=== PATIENT | female | born 1935 | race Caucasian/White ===

== ENCOUNTER 2022-08-16 18:44 | Emergency (ER) | payer OTHER ==
[2022-08-16 19:35] VITALS: BMI 22.3
[2022-08-16 20:33] LABS: BASO % 0.8 % (0-2.0); EOS % 1.2 % (0-4.5); HEMATOCRIT 16.2 % (32.4-45.2); LYMPH % 13.8 % (8-40); MCH 18.2 pg (25.7-33.7); MCHC 29.9 g/dl (32.0-36.0); MEAN CELL VOLUME 60.9 fl (80-96); MEAN PLT VOLUME 7.8 fl (7.5-11.1); NEUT % 67.2 % (42.8-82.8); PLATELET COUNT 284 10^3/uL (134-434); RBC 2.67 M/mm3 (3.60-5.2); RDW 19.9 % (11.6-15.6); WHITE BLOOD COUNT 8.8 K/mm3 (4.0-10.0)
[2022-08-16 20:34] LABS: HEMOGLOBIN 4.9 GM/dL (10.7-15.3)
[2022-08-16 20:54] LABS: BLOOD UREA NITROGEN 36.3 mg/dL (7-18); CALCIUM 8.6 mg/dL (8.5-10.1)
[2022-08-16 20:57] LABS: CREATININE 1.1 mg/dL (0.55-1.3)
[2022-08-16 20:58] LABS: BILIRUBIN,TOTAL 0.6 mg/dL (0.2-1)
[2022-08-16 21:00] LABS: TOT PROT 6.9 g/dl (6.4-8.2)
[2022-08-16 22:10] LABS: ANISOCYTOSIS 3+; MACROCYTOSIS 0
[2022-08-17 06:31] LABS: EOS % 2.4 % (0-4.5); HEMATOCRIT 23.6 % (32.4-45.2); HEMOGLOBIN 7.4 GM/dL (10.7-15.3); LYMPH % 12.1 % (8-40); MCH 21.2 pg (25.7-33.7); MCHC 31.5 g/dl (32.0-36.0); MEAN PLT VOLUME 8.2 fl (7.5-11.1); MONO % 17.6 % (3.8-10.2); NEUT % 66.9 % (42.8-82.8); PLATELET COUNT 237 10^3/uL (134-434); RDW 25.4 % (11.6-15.6); WHITE BLOOD COUNT 7.9 K/mm3 (4.0-10.0)
[2022-08-17 06:33] LABS: MEAN CELL VOLUME 67.3 fl (80-96)
[2022-08-17 10:09] VITALS: BP 83/59; PULSE 64; RESP 18; TEMP 97.5
== END 2022-08-17 11:42 ==
LOC: JER 18:44
DX: D64.89 Other specified anemias (principal); R53.1 Weakness; R06.02 Shortness of breath
CPT/HCPCS: 36415; 36430; 80053; 85025; 86850; 86900; 86901; 86922; 93005; 93010; 99284-25; P9058